=== PATIENT | male | born 1980 | race American Indian/Alaskan Native ===

== ENCOUNTER 2018-07-30 14:53 | Emergency (ER) | payer OTHER ==
[2018-07-30 15:18] VITALS: BP 145/84
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
--- NOTE | 2018-07-30 16:31 | XRay Report ---
PROCEDURE: XR SPINE LUMBOSACRAL 2-3V TECHNIQUE: Lumbar spine radiograph, 2 views. HISTORY: pain upt COMPARISONS: None currently available. FINDINGS: Lordotic alignment. Vertebral body heights are uniform. No fracture. Mild to moderate disc space narr owing at L3-S1. Posterior facet arthropathy at L5-S1. No subluxation. Otherwise disc spaces are intac t. Prevertebral soft tissues are unremarkable. Mild dextrocurvature or scoliosis. No rotatory component. No suspicious osseous lesions. No vertebral anomalies. IMPRESSION: * No fracture. * Mild dextrocurvature or scoliosis. 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 This document is electronically signed by Ayush Sotelo MD., Jul 30 2018 04:30:03 PM ET
== END 2018-07-30 16:59 | disposition home or self-care (01) ==
LOC: ED 14:53
DX: S39.012A Strain of muscle, fascia and tendon of lower back, initial encounter (principal); Z79.899 Other long term (current) drug therapy; V89.2XXA Person injured in unspecified motor-vehicle accident, traffic, initial encounter; Y93.89 Activity, other specified; Y92.488 Other paved roadways as the place of occurrence of the external cause; Y99.8 Other external cause status
CPT/HCPCS: 72100; 99283

== ENCOUNTER 2019-03-31 13:41 | Emergency (ER) | payer OTHER ==
[2019-03-31 15:57] VITALS: BP 137/86
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
== END 2019-03-31 17:36 | disposition home or self-care (01) ==
LOC: ED 13:41
DX: S39.012A Strain of muscle, fascia and tendon of lower back, initial encounter (principal); Z79.899 Other long term (current) drug therapy; V49.49XA Driver injured in collision with other motor vehicles in traffic accident, initial encounter; Y93.89 Activity, other specified; Y92.410 Unspecified street and highway as the place of occurrence of the external cause; Y99.8 Other external cause status